=== PATIENT | male | born 1950 | race Caucasian/White ===

== ENCOUNTER 2017-10-08 00:41 | Observation (INO) | payer MEDICARE, BC ==
[2017-10-07 15:28] LABS: INR 0.98
[~2017-10-08] VITALS: Ht 177.8 cm; Wt 94.8 kg
[2017-10-08] VITALS (14 sets, daily range): BP systolic 120–144; BP diastolic 69–99
[~2017-10-08 00:41] MED LIST: ATOR20TA65 PO; IBUP200C71 PO; LOSA-57 PO
[2017-10-08] MEDS ORDERED: MIDAZOLAM 2 MG/2 ML VIAL IVP PRN (06:15)
[2017-10-08] MEDS ORDERED: ceFAZolin(*) 2GM/D5W 50ML 50 ML IVPB ONE (06:15)
[2017-10-08] MEDS ORDERED: FAMOTIDINE 20 MG TAB PO ONE (06:15)
[2017-10-08] MEDS ORDERED: cloNIDine EPIDUR INJ 100MCG/ML 40 MCG, ROPIVACAINE 0.5% 20 ML VIAL 25 ML, EPINEPHrine H... INJ ONE (06:15)
[2017-10-08] MEDS ORDERED: NORMOSOL R SOLN(*) 1000 ML BAG 1,000 ML IV PRN ×2 (06:15→09:50)
[2017-10-08] MEDS ORDERED: TRANEXAMIC AC 1000 MG/10ML SDV 1,000 MG in DEXTROSE 5% 50 ML BAG 50 ML IV ONE (06:15)
[2017-10-08] MEDS ORDERED: LIDOCAINE/SOD BICARB 8.4% SYR ID ONE (06:15)
[2017-10-08] MEDS ORDERED: DEXAMETHASONE SOD 4 MG/ML VIAL ONE (06:18)
[2017-10-08] MEDS ORDERED: METOCLOPRAMIDE 10 MG/2 ML SDV ONE (06:18)
[2017-10-08] MEDS ORDERED: LIDOCAINE MPF 1% 5 ML VIAL ONE (06:18)
[2017-10-08] MEDS ORDERED: PROPOFOL EMUL(*) 10MG/ML 20 ML 20 ML ONE (06:18)
[2017-10-08] MEDS ORDERED: ONDANSETRON 4 MG/2 ML VIAL ONE (06:18)
[2017-10-08] MEDS ORDERED: fentaNYL CITR 100 MCG/2 ML AMP ONE ×2 (06:27→10:24)
[2017-10-08] MEDS ORDERED: ZOLPIDEM TARTRATE 5 MG TAB PO PRN (09:50)
[2017-10-08] MEDS ORDERED: BISACODYL 10 MG SUPP PR PRN (09:50)
[2017-10-08] MEDS ORDERED: MORPHINE SULFATE 30 MG PCA IV PRN (09:50)
[2017-10-08] MEDS ORDERED: FLUSH 10 ML SYR IVP PRN (09:50)
[2017-10-08] MEDS ORDERED: NALOXONE HCL 0.4 MG/ML VIAL IVP PRN (09:50)
[2017-10-08] MEDS ORDERED: MAGNESIUM HYDROXIDE* 30ML UDCP PO PRN (09:50)
[2017-10-08] MEDS ORDERED: PROMETHAZINE 25 MG/ML 1 ML AMP IVP PRN (09:50)
[2017-10-08] MEDS: oxyCODONE HCL 5 MG CAP PO PRN ×3 (10:57→20:56)
[2017-10-08] MEDS: ACETAMINOPHEN 500 MG TAB PO SCH ×2 (11:54→17:50)
--- NOTE | 2017-10-08 11:56 | RADIOLOGY IMAGING REPORT ---
FACILITY: [facility] PATIENT NAME: Cosme Pham : 1950 MR: [id number] V: [id number] EXAM DATE: ORDERING PHYSICIAN: JED MORSE TECHNOLOGIST: Location: [facility] Patient: Cosme Pham : 1950 Visit/Account:[id number] Date of Sevice: 10/08/2017 Exam type: KNEE LIMITED LEFT History: S/P TKA LEFT Comparison: None. Findings: There is a left total knee arthroplasty that appears in good anatomic alignment on the AP and lateral views. Soft tissue gas projects over the anterior soft tissues on this intraoperative study IMPRESSION: 1. As above Report Dictated By: Mandie Braswell MD at 10/08/2017 11:51 AM Report E-Signed By: Mandie Braswell MD at 10/08/2017 11:51 AM WSN:[id number]
--- NOTE | 2017-10-08 14:10 | Hospitalist Progress Note ---
Subjective Progress Notes Subjective Patient seen post-op. Reviewed PMHx and medications. He reports doing well. No CP/SOB/N/V. Physical Exam Vital Signs Date Time Temp Pulse Resp B/P (MAP) Pulse Ox O2 Delivery O2 Flow Rate FiO2 10/08/17 12:30 120/80 (93) 95 Nasal Cannula 2.0 10/08/17 11:30 69 10/08/17 10:49 97.7 16 Intake and Output 10/09/17 07:00 Intake Total 3020 ml Balance 3020 ml Intake Oral 1220 ml IV Total 1800 ml General Appearance: Alert, Awake Cardiovascular: Regular Rate and Rhythm Respiratory: Clear to Auscultation Assessment and Plan Problems: (1) HTN (hypertension) Status: Chronic Assessment & Plan: Monitor BPs and resume Hyzaar as needed. (2) Hyperlipidemia Status: Chronic Assessment & Plan: Continue atorvastatin. (3) S/P knee replacement Status: Acute Assessment & Plan: He appears stable post-op. He has no history of DVT/PE. Will place on aspirin 325mg daily. Exam Sepsis Risk: No Definite Risk SHUN MONTEIRO MD Oct 08, 2017 14:10
[2017-10-08] MEDS: PANTOPRAZOLE SOD 40 MG TABEC PO SCH (14:36)
[2017-10-08] MEDS: ceFAZolin(*) 2GM/D5W 50ML 50 ML IVPB SCH (17:23)
[2017-10-08] MEDS: ATORVASTATIN 10 MG TAB PO SCH (20:56)
[2017-10-08] MEDS ORDERED: ASPIRIN 325 MG ENTERIC COATED PO ONE (21:00)
[2017-10-09] MEDS: ceFAZolin(*) 2GM/D5W 50ML 50 ML IVPB SCH ×2 (00:37→09:43)
[2017-10-09] MEDS: ACETAMINOPHEN 500 MG TAB PO SCH ×4 (00:38→17:40)
[2017-10-09 00:42] VITALS: BP 136/86
[2017-10-09] MEDS: oxyCODONE HCL 5 MG CAP PO PRN ×4 (03:41→22:30)
[2017-10-09 03:43] VITALS: BP 124/82
[2017-10-09 08:11] VITALS: BP 126/72
--- NOTE | 2017-10-09 09:10 | Hospitalist Progress Note ---
Subjective Progress Notes Subjective No complaints this AM. Physical Exam Vital Signs Date Time Temp Pulse Resp B/P (MAP) Pulse Ox O2 Delivery O2 Flow Rate FiO2 10/09/17 08:11 93 10/09/17 08:11 98.0 65 18 126/72 (90) Room Air 10/09/17 03:43 1.0 Intake and Output 10/10/17 07:00 Output Total 100 ml Balance -100 ml Output Urine Total 100 ml General Appearance: Alert, Awake Result Diagram: 10/09/17 0536 Assessment and Plan Problems: (1) HTN (hypertension) Status: Chronic Assessment & Plan: Continue to monitor BPs and resume Hyzaar as needed. (2) Hyperlipidemia Status: Chronic Assessment & Plan: Continue atorvastatin. (3) S/P knee replacement Status: Acute Assessment & Plan: He appears stable post-op. He has no history of DVT/PE. He is on aspirin 325mg daily for prophylaxis. Exam Sepsis Risk: No Definite Risk SHUN MONTEIRO MD Oct 09, 2017 09:10
[2017-10-09] MEDS: LOSARTAN POTASSIUM 50 MG TAB PO SCH (09:40)
[2017-10-09] MEDS: HYDROCHLOROTHIAZIDE 25 MG TAB PO SCH (09:41)
[2017-10-09] MEDS: ASPIRIN 325 MG ENTERIC COATED PO SCH (09:43)
[2017-10-09] MEDS: PANTOPRAZOLE SOD 40 MG TABEC PO SCH (09:43)
[2017-10-09 10:52] VITALS: BP 137/70
[2017-10-09] MEDS: MORPHINE 2 MG/ML SYR IVP PRN ×2 (11:33→17:40)
[2017-10-09 14:22] VITALS: Ht 177.8 cm; Wt 94.8 kg
[2017-10-09 16:16] VITALS: BP 150/78
[2017-10-09] MEDS: ONDANSETRON 4 MG/2 ML VIAL IVP PRN (16:58)
[2017-10-09 19:28] VITALS: BP 147/79
[2017-10-09] MEDS: ATORVASTATIN 10 MG TAB PO SCH (20:27)
[2017-10-10 00:26] VITALS: BP 139/80
[2017-10-10] MEDS: ACETAMINOPHEN 500 MG TAB PO SCH ×3 (00:28→11:21)
[2017-10-10] MEDS: ONDANSETRON 4 MG/2 ML VIAL IVP PRN (00:50)
[2017-10-10] MEDS: MORPHINE 2 MG/ML SYR IVP PRN ×2 (00:50→13:29)
[2017-10-10] MEDS: oxyCODONE HCL 5 MG CAP PO PRN ×2 (05:18→11:21)
[2017-10-10 05:47] VITALS: BP 129/77
--- NOTE | 2017-10-10 07:10 | Hospitalist Progress Note ---
Subjective Progress Notes Subjective He denies any complaints this AM. Physical Exam Vital Signs Date Time Temp Pulse Resp B/P (MAP) Pulse Ox O2 Delivery O2 Flow Rate FiO2 10/10/17 05:47 99.8 85 16 129/77 (94) 97 Nasal Cannula 2.0 General Appearance: Alert, Awake Cardiovascular: Regular Rate and Rhythm Result Diagram: 10/10/17 0553 Assessment and Plan Problems: (1) HTN (hypertension) Status: Chronic Assessment & Plan: He has been essentially normotensive during his stay. Will have him monitor BPs and hold his Hyzaar for now. He will keep a record of his BPs twice a day and check in with his PCPin next week or two. (2) Hyperlipidemia Status: Chronic Assessment & Plan: Continue atorvastatin. (3) S/P knee replacement Status: Acute Assessment & Plan: He appears stable post-op. He has no history of DVT/PE. He will be on aspirin 325mg daily for 30 days for prophylaxis. Exam Sepsis Risk: No Definite Risk SHUN MONTEIRO MD Oct 10, 2017 07:10
[2017-10-10] MEDS ORDERED: ASPI-764 PO (07:13)
[2017-10-10 07:27] VITALS: BP 132/76
[2017-10-10] MEDS ORDERED: OXYC-869 PO (08:23)
[2017-10-10] MEDS: HYDROCHLOROTHIAZIDE 25 MG TAB PO SCH (09:00)
[2017-10-10] MEDS: LOSARTAN POTASSIUM 50 MG TAB PO SCH (09:00)
[2017-10-10] MEDS: ASPIRIN 325 MG ENTERIC COATED PO SCH (10:12)
[2017-10-10] MEDS: PANTOPRAZOLE SOD 40 MG TABEC PO SCH (10:12)
[2017-10-10] MEDS ORDERED: LOSA-57 PO (12:05)
--- NOTE | 2017-10-10 16:03 | OPERATIVE REPORT 1 ---
EVENT DATE: October 08, 2017 SURGEON: Selvin Harry MD ANESTHESIOLOGIST: Eric Hensley MD ANESTHESIA: Spinal block, followed by general. SPRING UPHOLSTERER: ALLYSON Pepe We utilized 1 g of tranexamic acid (TXA) 10 minutes prior to start and after the implantation. We utilized 50 mL of our standard ropivacaine and Toradol cocktail. PREOPERATIVE DIAGNOSIS Left knee degenerative joint disease, varus alignment, and flexion contracture. POSTOPERATIVE DIAGNOSIS Left knee degenerative joint disease, varus alignment and flexion contracture. PROCEDURE PERFORMED Left total knee arthroplasty. IMPLANTS MicroPort medial pivot-shift CS system with a 5 femur, 6 tibia, 17 mm insert, 35 x 8 symmetric patella, femur cut 6 degrees valgus, 10 mm. We utilized two packages of [employer] [place] Blue cement and our ZipLine wound closure system. SPECIMENS None. COMPLICATIONS None. ESTIMATED BLOOD LOSS Approximately 200 mL. OPERATION The patient received appropriate preoperative antibiotics. He was brought to the OR where Dr. Hensley performed spinal, followed by general anesthesia. A left thigh tourniquet was placed. The left lower extremity was prepped and draped in the usual sterile fashion. A midline incision was made, followed by a medial parapatellar arthrotomy. We noted eburnation in the medial compartment , high-grade changes in the patellofemoral compartment, and significant spurring throughout. Dissection was carried out subperiosteally with the Bovie along the medial tibial plateau to the level of the semimembranosus insertion. We excised the fat pad, released the patella, everted this, and brought the knee up in hyperflexion. Significant osteophytic change was noted in the notch , and this was removed with a variety of rongeurs. We released the PCL. The ACL was absent. This was done subperiosteally. The remaining articular cartilage was removed from the distal femoral condyles by sagittal saw. We placed the appropriate retractors. A step cut drill was utilized to broach the canal. We placed our intramedullary femoral guide, setting up our distal cutting block at 10 mm, 6 degrees of valgus. This was pinned into place and care taken to protect the soft tissue. This cut was made. The 30-degree external rotation guide was then placed referencing off the epicondyles, posterior condyles, and anterior flange. We sized the femur to a #5 and drove a 3-degree external rotation holes. We placed our four-in-one cutting block, Z retractors to protect the soft tissue, and made our four cuts. We then brought the tibia anteriorly in the femur with appropriate retractors. The step cut drill was utilized to broach the tibial canal. We placed our intramedullary guide, and referencing 2 mm off the eburnated medial tibial plateau, we set up our guide for depth and rotation, pinned the block into place, placed appropriate retractors to protect the soft tissue, and made our tibial cut. Osteophytes were removed by a rongeur, particularly anteromedially. We sized the femur to a #6. The stumps of the PCL and the medial and lateral menisci were removed by Bovie. A curved osteotome was utilized to remove posterior osteophytes, followed by elevation of the capsule with the Miller elevator. We placed our #6 trial tibial baseplate, referencing from previous rotation. We started with the 14 mm insert and then placed our femur. We had full extension and decent balance, but it appeared to be slightly toggling, and anterior drawer translated greater than we wanted it to. We removed the femur and tibial insert. We placed a 17 mm insert and replaced the femur. We achieved full extension and achieved flexion of 140 degrees, limited only by body habitus. At 90 degrees, we had a satisfactory drawer, and the marshall patella tracked well. The knee was brought to full extension. The patella was measured at 27 mm, and this was cut down 8 mm with the guide. We positioned our peg hole guide inferiorly and medially, drilled our peg holes, and this accepted a 35 x 8 trial. The peg holes for the femur were then drilled, pegs placed, bone cut for patellar chip, and the trial was placed. Again, we had the aforementioned range of motion and stability through varus and valgus stress. The patella tracked well with satisfactory endpoint on anterior drawer. The trial femur, tibial insert, and patella were removed. Appropriate retractors were placed to expose the tibia, and we placed our tower. We cut, reamed, and punched. This instrumentation was removed. We placed a bone plug in the distal femur, brought the knee up to full extension, and copiously irrigated by pulse lavage. I mixed two batches of our cement. We then placed the knee in the appropriate position and kept the bone from filling up with blood with laps. Starting with the tibia, this was cemented into place, followed by our 17 mm CS insert, and then our femur. Excess cement was removed , and the knee was brought into full extension with axial compression while we cemented the patella. After 14-1/2 minutes, the cement had cured. Again, we had the aforementioned range of motion and stability. Prior to the cementation , we injected 10 mL of our cocktail into the posterior capsule. We injected the remaining 40 mL of our cocktail in the distal quad mechanism. We then copiously irrigated once again and closed the arthrotomy with #2 Vicryl in a [id number] suture fashion, followed by 2-0 Vicryl for skin and ZipLine wound closure system with the knee flexed at 90 degrees after cleaning the wounds. A compressive dressing was applied. The patient was extubated and taken to recovery in stable condition. PLAN The hospitalist team will be consulted for medical management and anticoagulation, PT and OT for rehab. ROCKY
--- NOTE | 2017-10-11 17:34 | DISCHARGE SUMMARY ---
DATE OF ADMISSION: October 08, 2017 DATE OF DISCHARGE: October 10, 2017 HISTORY The patient is a 67-year-old male admitted through the day surgery and underwent left total knee arthroplasty. Postoperatively, the hospitalist team consulted for medical management and anticoagulation, PT and OT for rehab. He progressed in a very rapid manner. On the day of discharge, the wounds were clean, dry, and intact. He was neurovascularly intact. PLAN The plan is for outpatient physical therapy, home CMP, and follow up in our spine clinic in a week. Hospitalist team will transfer the medical management and anticoagulation. PRINCIPAL DIAGNOSIS Left knee degenerative joint disease. PRINCIPAL PROCEDURE Left total knee arthroplasty. MTDD
== END 2017-10-10 14:10 | disposition home or self-care (01) ==
LOC: OR 00:41 → MED 10:45 → INTOOBSV 10:45
PROVIDERS: ADMIT Orthopaedic Surgery; ATTEND Orthopaedic Surgery
DX: M17.12 Unilateral primary osteoarthritis, left knee (principal); M24.562 Contracture, left knee; I10 Essential (primary) hypertension; E78.5 Hyperlipidemia, unspecified; Z79.899 Other long term (current) drug therapy
CPT/HCPCS: 27447; 36415; 73560; 85014; 85018; 85610; 86850; 86900; 86901; 97110; 97116; 97161; 97530; A9270; C1713; C1776; G0378; J0171; J0735; J1100; J1885; J2001; J2250; J2270; J2405; J2704; J2765; J2795; J3010; J7050; J7060; J0690